=== PATIENT | male | born 1945 | race Caucasian/White ===

== ENCOUNTER 2017-09-02 12:03 | Inpatient (IN) | END 2017-09-03 11:12 | disposition home or self-care (01) | DRG 483 ==

== ENCOUNTER 2017-09-30 08:29 | Inpatient (IN) | END 2017-10-01 10:44 | disposition home or self-care (01) | DRG 483 ==

== ENCOUNTER 2017-11-02 12:41 | Inpatient (IN) | END 2017-11-05 15:05 | disposition home health service (06) | DRG 560 ==

== ENCOUNTER 2017-12-11 08:27 | Emergency (ER) | END 2017-12-11 14:35 | disposition home or self-care (01) ==

== ENCOUNTER 2018-03-17 08:53 | Inpatient (IN) | END 2018-03-18 11:07 | disposition home or self-care (01) | DRG 483 ==

== ENCOUNTER 2018-04-01 08:30 | Emergency (ER) | END 2018-04-01 12:12 | disposition home or self-care (01) ==

== ENCOUNTER 2018-05-05 10:02 | Inpatient (IN) | payer OTHER, MEDICARE ==
[~2018-05-05] VITALS: Ht 182.9 cm; Wt 88.2 kg
[2018-05-05] VITALS (26 sets, daily range): BP systolic 100–139; BP diastolic 53–68; PULSE 60–76; RESP 10–18
--- NOTE | 2018-05-05 05:48 | HPN ---
Date/Time of Note Date/Time of Note DATE: 05/05/18 TIME: 05:48 Interval H&P Admission Note Pt. seen H&P reviewed: No system changes ALLEN SRIVASTAVA MD May 05, 2018 05:48
--- NOTE | 2018-05-05 05:52 | OPR ---
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 Revision of right reverse total shoulder replacement with reverse total shoulder replacement 2. Application of PRP to intramedullary canal Surgeon see signature line Monotype Setter Braden Pulido DO Anesthesia Type: general Estimated Blood Loss: 100 - 150 ml's Transfusion none Specimen None Grafts/Implants See body of op note Complications none Pt Condition Post Procedure: stable Disposition: PACU Procedure Description THERAPIST PHYSICAL SURGEON: Braden Pulido DO was asked to be present for this case at my request. Assistance was necessary as a result of the highly technical nature of this operation. When performing an open total shoulder replacement, it is critical to have a trained reading assistant who is an expert in handling the extremity and assisting the surgeon in tasks such as manipulation of the arm, protection of the neurovascular structures and positioning the implants. This assistance cannot be performed by a behavioral technician, as it is considered an integral part of the procedure and Dr. Pulido should be compensated for his time. PROCEDURE IN DETAIL: Following the administration of general anesthesia supplemented with a peripheral nerve block for postoperative pain control, the patient was examined under anesthesia. Examination revealed that the humeral component was anterior and superiorly dislocated. Passively, it was not reducible. Prior to sterile prep and drape the forearm was then prepped and 60 cc of blood were pulled from the vein. The blood was then given to the customer retention representative to create a PRP infusion. The patient was then placed in the beach chair position. Sterile prep and drape was then undertaken. The prior deltopectoral incision was then carried through the interval exposing the conjoined tendon and retracting it medially. The humeral component was then subluxed and brought out. There was significant synovial reactive tissue and this was debrided. The humeral component was then removed relatively atraumatically preserving the humeral shaft intact. The proximal cement mantle was removed enough to insert the new device. Attention then directed to the glenoid where the glenoid component was evaluated no significant abnormalities were noted other than some metal wear. The glenoid sphere was then removed and replaced with a 42 mm eccentric component, which is ultimately placed anteriorly. This was a temporary spacer for evaluation later. The shaft was then prepared for a humeral component, which was a Biomet mini component. Ultimately, a size 4 component with a 10 mm deep liner was then applied. This appeared to have the best position. Prior to insertion of the new device, a portion of the posterior bone was noted to be very prominent. This was thought to be perhaps a reason for the recurrent dislocation episodes. The bone was then removed back to the base and no further impingement was noted with abduction and external rotation. The canal was then irrigated and the PRP solution was then applied. Cement was then used to fix the size for many Biomet component in 30 degrees of retroversion. The device was taken through a full range of motion with no evident instability. The joint was then thoroughly irrigated, the deep tissues were approximated using #1 suture followed by closure of the deep layer using 2-0 Monocryl. The skin was closed using 4-0 Monocryl suture, and a Prenio dressing. An Ultrasling was then applied. The patient was awakened and transported to the recovery room in stable condition. Estimated blood loss for this procedure was 200 cc. Radiographs will be obtained in the recovery room. ALLEN SRIVASTAVA MD May 05, 2018 05:52
[~2018-05-05 10:02] MED LIST: ASPI81TA52 PO; BUPIVACAINE 0.5% (SDV) 30 ML, morphine SULFATE (PF) 8 MG, EPINEPHrine 0.3 MG, KETOROLAC... IRR SCH; CEFAZOLIN 2 GM/50 ML (PMX) 50 ML IVPB ONE; CEPH-443 PO; DEXAMETHASONE 1 MG TAB PO ONE; GABAPENTIN 300 MG CAP PO ONE; GLIM2TAB PO; HYDR-3980 PO; METF100010 PO; SITA100T11 PO; SOD CHLORIDE 0.9% 100 ML, TRANEXAMIC ACID 3,000 MG IRR ONE; SUGAMMADEX SODIUM 200 MG/2 ML VIAL IV ONE; SULF1TAB31 PO; TRANEXAMIC ACID 1,000 MG in DEXTROSE 5% 100 ML IVPB ONE; TRHC5025 PO
[2018-05-05] MEDS ORDERED: PROPOFOL 20 ML ONE (10:26)
[2018-05-05] MEDS ORDERED: CEFAZOLIN 1 GM INJ ONE (10:26)
[2018-05-05] MEDS ORDERED: ROCURONIUM 50 MG INJ ONE (10:26)
[2018-05-05] MEDS ORDERED: GLYCOPYRROLATE 0.4 MG INJ ONE (10:26)
[2018-05-05] MEDS ORDERED: NEOSTIGMINE 3 MG/3 ML SYRINGE ONE (10:26)
[2018-05-05] MEDS ORDERED: FENTAnyl 50 MCG/ML VIAL ONE (10:27)
[2018-05-05] MEDS ORDERED: MIDAZOLAM 1 MG/ML 2 ML INJ ONE (10:27)
[2018-05-05] MEDS ORDERED: ROPIVACAINE 0.5 % 30 ML VIAL ONE (10:27)
[2018-05-05] MEDS ORDERED: ONDANSETRON 4 MG INJ ONE (10:27)
[2018-05-05] MEDS ORDERED: GABA100C14 PO (10:34)
[2018-05-05] MEDS ORDERED: LINA5TAB PO (10:35)
--- NOTE | 2018-05-05 11:42 | PREAC ---
Date/Time of Note Date/Time of Note DATE: 05/05/18 TIME: 11:40 Anesthesia Eval and Record Evaluation Time Pre-Procedure Interview DATE: 05/05/18 TIME: 11:40 Age 72 Sex male NPO: 8 hrs Preoperative diagnosis RIGHT SHOULDER OA Planned procedure REVISION REVERSE RIGHT TOTAL SHOULDER ARTHROPLASTY Past Medical History Past Medical History: Includes Endo: Diabetes (BS: 174) Surgery & Anesthesia Issues No known issue Meds Anticoagulation: No Beta Narda within 24 hr: No Reason Beta Narda not given: Pt. not on B-Narda Reported Medications Linagliptin (TRADJENTA) 5 Mg Tablet, 5 MG PO DAILY, TAB 05/05/18 Gabapentin* (Gabapentin*) 100 Mg Capsule, 100 MG PO BID, #90 CAP 05/05/18 Triamterene-HCTZ* (Triamterene-HCTZ*) 50 - 25 Mg Cap, 0.5 CAP PO DAILY, CAP 03/17/18 Metformin Hcl* (Metformin Hcl*) 1,000 Mg Tablet, 1000 MG PO WITH BREAKFAST DINNE, #60 TAB 03/17/18 Sitagliptin* (Januvia*) 100 Mg Tablet, 100 MG PO DAILY, #30 TAB 03/17/18 Glimepiride* (Glimepiride*) 2 Mg Tablet, 2 MG PO WITH BREAKFAST, TAB 09/02/17 Aspirin (Low Dose Aspirin) 81 Mg Tablet.dr, 81 MG PO DAILY, #30 TAB 09/02/17 Discontinued Scripts Hydrocodone/Acetaminophen ([place] 10-325 Tablet) 1 Each Tablet, 1 TAB PO Q6H PRN for PAIN, #7 TAB Prov:LEKKOS,APOSTOLOS A. DO 04/01/18 Sulfamethoxazole/Trimethoprim* (Bactrim Ds* Tablet) 1 Each Tablet, 1 TAB PO BID for 7 Days, TAB Prov:LEKKOS,APOSTOLOS A. DO 04/01/18 Cephalexin* (Keflex*) 500 Mg Capsule, 500 MG PO QID for 7 Days, CAP Prov:LEKKOS,APOSTOLOS A. DO 04/01/18 Current Medications Bupivacaine HCl/ Morphine Sulfate/ Epinephrine/ Ketorolac Tromethamine/ Clonidine/Sodium Chloride/ Vancomycin HCl INTRA-OP IRR ; Start 05/05/18 at 06:30 Meds reviewed: Yes Allergies Coded Allergies: latex (Unverified Allergy, Unknown, UNKNOWN, 05/05/18) LATEX ALLERGY (UNKNOWN REACTION) PER JONATAN AT MD OFFICE. 09/01/17 1147 Allergies Reviewed: Yes Labs/Studies Labs Reviewed: Reviewed by anesthesiologist Result Diagram: 05/05/18 1045 Laboratory Tests 05/05/18 10:45 test: N/A Studies: ECG (NL), CXR (NAPD) Pre-procedure Exam Last vitals Vital Signs Date Temp Pulse Resp B/P (MAP) Pulse Ox O2 O2 Flow FiO2 Time Delivery Rate 05/05/18 96.9 76 16 135/66 95 Room Air 11:03 (89) Airway: Adequate mouth opening, Adequate thyromental dist Mallampati: Mallampati II Teeth: Normal Lung: Normal Heart: Normal ASA Physical Status ASA physical status: 2 Emergency: None Planned Anesthetic General/MAC: ETT Nerve block: Brachial plexus (right) Planned Pain Management Single shot nerve block, Parenteral pain med, Local by surgeon Pre-operative Attestations Prior to commencing anesthesia and surgery, the patient was re-evaluated, there was verification of: *The patient's identity *The results of appropriate recent lab work and preoperative vital signs *The above evaluation not changing prior to induction *Anesthetic plan, risk benefits, alternative and complications discussed with patient/family; questions answered; patient/family understands, accepts and wishes to proceed. Inocente Rainey M.D. May 05, 2018 11:42
[2018-05-05] MEDS ORDERED: POLYMYXIN/BACITRACIN 1L IRRIG ONE (11:45)
[2018-05-05] MEDS ORDERED: CA CHLORIDE (GM) 10% 10 ML INJ ONE (11:45)
[2018-05-05] MEDS ORDERED: THROMBIN 5000 UNIT VIAL ONE (11:45)
[2018-05-05] MEDS ORDERED: BUPIVACAINE 0.5%/EPI (SDV) 30 ML INJ ONE (11:45)
[2018-05-05] MEDS ORDERED: OXYCODONE/ACETAMINOPHEN (5/325) TAB PO PRN ×2 (12:00)
[2018-05-05] MEDS ORDERED: ALBUTEROL 0.083% (NEB) 2.5 MG/3 ML AMP HHN PRN (12:00)
[2018-05-05] MEDS ORDERED: DIPHENHYDRAMINE 50 MG INJ IV PRN ×2 (12:00→14:00)
[2018-05-05] MEDS ORDERED: ONDANSETRON 4 MG INJ IV PRN ×2 (12:00→14:00)
[2018-05-05] MEDS ORDERED: TRIMETHOBENZAMIDE 100 MG/ML VIAL IM PRN (12:00)
[2018-05-05] MEDS ORDERED: FENTAnyl 50 MCG/ML VIAL IV PRN ×3 (12:00)
[2018-05-05] MEDS ORDERED: hydrALAzine 20 MG INJ IV PRN ×2 (12:00→18:30)
[2018-05-05] MEDS ORDERED: EPHEDrine SULFATE 50 MG/5 ML SYG IV PRN (12:00)
[2018-05-05] MEDS ORDERED: IPRATROPIUM (NEB) 0.5 MG/2.5 ML AMP HHN PRN (12:00)
[2018-05-05] MEDS ORDERED: LABETALOL HCL 20MG INJ IV PRN (12:00)
[2018-05-05] MEDS ORDERED: MEPERIDINE 25 MG INJ IV PRN (12:00)
[2018-05-05] MEDS ORDERED: HYDROmorphONE 1 MG/5 ML IV SYRINGE IV PRN ×3 (12:00)
[2018-05-05] MEDS ORDERED: MIDAZOLAM 1 MG/ML 2 ML INJ IV PRN (12:00)
--- NOTE | 2018-05-05 12:48 | PREOPHP ---
DATE OF ADMISSION: 05/05/2018 ADMITTING DIAGNOSIS: Failed reverse right total shoulder replacement revision by Dr. Allen Srivastava. HISTORY OF PRESENT ILLNESS: The patient is a 72-year-old male with type 2 diabetes, hypert ension and multiple surgeries on his right shoulder most recently done in 03/2018. The patient melany nued to have decreased range of motion and had evidence of failed reverse total replacement with redu klaudia range of motion and minimal pain. The patient is being admitted for elective revision. REVIEW OF SYSTEMS: No fevers, chills or night sweats. No chest pain, no shortness of breath, no pal pitations, no orthopnea, no sore throat, no cough, no diarrhea, no constipation, no heartburn, swelli ng in the ankles, no dizziness, no headache. PAST MEDICAL HISTORY: Type 2 diabetes, erectile dysfunction, hypertension. PAST SURGICAL HISTORY: Status post multiple surgeries on the right shoulder, last one being done 09/2017, status post laparoscopic cholecystectomy, status post left shoulder rotator cuff arthroscopy and repair and status post arthroscopy on the right knee and surgery on the left ankle. FAMILY HISTORY: Noncontributory. ALLERGIES: LATEX. MEDICATIONS: 1. Januvia 100 mg daily. 2. Triamterene/hydrochlorothiazide 50/25 1/2 daily. 2. Levitra 20 mg p.r.n. 3. Aspirin but has been on hold. SOCIAL HISTORY: The patient is . No tobacco, no alcohol use. PHYSICAL EXAMINATION: VITAL SIGNS: Blood pressure 140/70, respirations 16, pulse of 85, temperature 97.6, weight of 194 po unds, oxygen saturation 92% on room air. GENERAL: Well-developed, well-nourished male in no acute distress. SKIN: Without rashes. HEENT: EOMI, PERRLA. Oropharynx is clear without exudate. NECK: No jugular venous distention, 2+ carotid upstroke without bruits. No thyromegaly. No lymphad enopathy. LUNGS: Clear to auscultation bilaterally. HEART: Regular rate and rhythm. No murmurs, gallops or rub noted. ABDOMEN: Mild obesity, normoactive bowel sounds. No hepatosplenomegaly, no hepatojugular reflux. EXTREMITIES: No cyanosis, clubbing or edema. NEUROLOGIC: Nonfocal. DIAGNOSTIC DATA: EKG shows normal sinus rhythm without acute change from prior. LABORATORY EXAMINATION: Remarkable for an elevated nonfasting blood sugar. ASSESSMENT AND PLAN: The patient is to get elective revision of the right shoulder reverse total rep lacement that failed. The patient may proceed with the surgery as scheduled. There are no contraind ications to surgery as scheduled. 1. Failed right total shoulder reverse replacement. The patient is to undergo elective repair and m ay proceed with surgery as scheduled. 2. Diabetes. We will hold the patient's diabetic medications for the surgery and we will do sliding scale insulin postoperatively and advance diet depending on how he is doing. 3. Hypertension. The patient was to hold his diuretic prior to the surgery and we will resume medic ations and give p.r.n. if his blood pressure is elevated postoperatively. Dictated By: JIGNA GILLESPIE MD SR/NTS Conf#: [id number] DID#: [id number] CC: ALLEN SRIVASTAVA MD;*End*
[2018-05-05] MEDS ORDERED: VANCOMYCIN 1 GM INJ ONE ×2 (12:50→12:51)
[2018-05-05] MEDS ORDERED: TRANEXAMIC ACID 1,000 MG in SOD CHLORIDE 0.9% 100 ML IVPB ONE ×4 (13:30)
--- NOTE | 2018-05-05 13:41 | PDOCDIS ---
Discharge Instructions DIAGNOSIS Discharge Diagnosis Failed reverse total shoulder CONDITION [id number] Patient Condition: [id number] Good HOME CARE INSTRUCTIONS: [id number] Diet Instructions: [id number] Regular ACTIVITY: Myufi2Ee Activity Restrictions: Wgyni0y Slowly Increase Activity Quhtr8Go Bathing Restrictions: Ksvus2t Shower FOLLOW UP/APPOINTMENTS Follow-up Plan 2 weeks SCHOOL/WORK RELEASE May return to School/Work with: With Restrictions School/Work Release Comment: 5 pound tabletop usage for 6 weeks ALLEN SRIVASTAVA MD May 05, 2018 13:41
[2018-05-05] MEDS ORDERED: ZOLPIDEM 5 MG TAB PO PRN (14:00)
[2018-05-05] MEDS ORDERED: MAGNESIUM HYDROXIDE 30ML CUP PO PRN (14:00)
[2018-05-05] MEDS ORDERED: oxyCODONE 5 MG TAB PO PRN ×3 (14:00)
[2018-05-05] MEDS ORDERED: TRANEXAMIC ACID 1,000 MG in SOD CHLORIDE 0.9% 100 ML IVPB SCH (14:00)
[2018-05-05] MEDS ORDERED: NACL 0.9% 3 ML SYG IV SCH (14:00)
[2018-05-05] MEDS ORDERED: LOPERAMIDE 2 MG CAP PO PRN (14:00)
[2018-05-05] MEDS ORDERED: HYDROmorphONE 1 MG/ML SYG IV PRN (14:00)
[2018-05-05] MEDS ORDERED: KETOROLAC 15 MG INJ IV PRN (14:00)
[2018-05-05] MEDS ORDERED: CEFAZOLIN 1 GM/50 ML (PMX) 50 ML IVPB ONE (14:14)
[2018-05-05] MEDS: CEFAZOLIN 1 GM/50 ML (PMX) 50 ML IVPB SCH ×2 (14:58→22:06)
[2018-05-05] MEDS: ACCU-CHEK XX SCH ×6 (17:25→21:00)
[2018-05-05] MEDS: metFORMIN 500 MG TAB PO SCH (18:08)
[2018-05-05] MEDS: DEXAMETHASONE 2 MG TAB PO SCH (18:08)
[2018-05-05] MEDS: ACETAMINOPHEN 500 MG TAB PO SCH (18:08)
[2018-05-05] MEDS ORDERED: DEXTROSE 50% 50 ML SYRINGE IV PRN ×2 (18:30)
[2018-05-05] MEDS ORDERED: GLUCAGON 1 MG INJ IM PRN (18:30)
[2018-05-05] MEDS ORDERED: GLUCOSE GEL 15 GRAM TUBE PO PRN ×2 (18:30)
[2018-05-05] MEDS ORDERED: GLUCOSE GEL 15 GRAM TUBE BUCCAL PRN (18:30)
--- NOTE | 2018-05-05 19:46 | PN ---
DATE: 05/05/2018 SUBJECTIVE: The patient with no pain, but cannot move or feel his right arm since surgery. Otherwis e, feels fine. OBJECTIVE: VITAL SIGNS: Temperature 97.4, pulse 72 and regular, respirations 16, blood pressure 100/57, oxygen saturation 94% on 2-liter nasal cannula oxygen. GENERAL: Well-developed, well-nourished male in no acute distress, sitting up in bed. LUNGS: Clear to auscultation bilaterally. HEART: Regular rate and rhythm. ABDOMEN: Soft, nontender. SKIN: Wound clean, dry and intact. No drainage. NEUROLOGIC: The patient is unable to move the right upper extremity and has no fine touch, pinprick or temperature sensation until the medial axillary area of the arm. Neurological is otherwise nonfoc al. IMPRESSION AND PLAN: 1. Status post revision of right reverse total shoulder replacement. The patient is doing well post operatively without problems. We will continue with analgesia, antibiotics and wound control. 2. Diabetes. The patient is to receive metformin, Tradjenta and glimepiride with a sliding scale in sulin with NovoLog with mild algorithm to keep blood sugars less than 150. 3. Hypertension. We will continue the patient's blood pressure medication and give p.r.n. hydralazi ne. Dictated By: JIGNA GILLESPIE MD SR/NTS Conf#: [id number] DID#: [id number] CC: ALLEN SRIVASTAVA MD;*EndCC*
[2018-05-05] MEDS: SENNA/DOCUSATE NA (8.6MG/50MG) TAB PO SCH (21:00)
[2018-05-05] MEDS ORDERED: GABAPENTIN 300 MG CAP PO SCH (21:00)
[2018-05-05] MEDS: GABAPENTIN 100 MG CAP PO SCH (22:06)
[2018-05-05] MEDS: INSULIN ASPART [NOVOLOG] 3 ML PEN SC SCH (22:14)
--- NOTE | 2018-05-06 05:51 | DS ---
Date/Time of Note Date/Time of Note DATE: 05/06/18 TIME: 05:51 Discharge Summary Admission/Discharge Info Admit Date/Time May 05, 2018 at 10:02 Discharge Date/Time 05/06/2018 Discharge Diagnosis Failed reverse total shoulder Patient Condition: Good Hospital Course Admitted and underwent uncomplicated procedure. Postop day #1 he is stable, af ebrile discharged to be followed up in the office in 10 days. He is to use the arm for very simple activities of daily living only. No lifting. Home Meds Reported Medications Linagliptin (TRADJENTA) 5 Mg Tablet, 5 MG PO DAILY, TAB 05/05/18 Gabapentin* (Gabapentin*) 100 Mg Capsule, 100 MG PO BID, #90 CAP 05/05/18 Triamterene-HCTZ* (Triamterene-HCTZ*) 50 - 25 Mg Cap, 0.5 CAP PO DAILY, CAP 03/17/18 Metformin Hcl* (Metformin Hcl*) 1,000 Mg Tablet, 1000 MG PO WITH BREAKFAST DINNE, #60 TAB 03/17/18 Sitagliptin* (Januvia*) 100 Mg Tablet, 100 MG PO DAILY, #30 TAB 03/17/18 Glimepiride* (Glimepiride*) 2 Mg Tablet, 2 MG PO WITH BREAKFAST, TAB 09/02/17 Aspirin (Low Dose Aspirin) 81 Mg Tablet.dr, 81 MG PO DAILY, #30 TAB 09/02/17 Discontinued Scripts Hydrocodone/Acetaminophen ([place] 10-325 Tablet) 1 Each Tablet, 1 TAB PO Q6H PRN for PAIN, #7 TAB Prov:LEKKOS,APOSTOLOS A. DO 04/01/18 Sulfamethoxazole/Trimethoprim* (Bactrim Ds* Tablet) 1 Each Tablet, 1 TAB PO BID for 7 Days, TAB Prov:LEKKOS,APOSTOLOS A. DO 04/01/18 Cephalexin* (Keflex*) 500 Mg Capsule, 500 MG PO QID for 7 Days, CAP Prov:LEKKOS,APOSTOLOS A. DO 04/01/18 Follow-up Plan 2 weeks Primary Care Provider Ken Limon Pending Labs Laboratory Tests Test 05/05/18 10:45 05/05/18 10:53 05/05/18 14:27 05/05/18 18:02 White Blood 4.6 Count 10^3/ul (4.8-10 .8) Red Blood 4.11 Count 10^6/ul (4.70-6 .10) Hemoglobin 12.7 g/dl (14.0-18.0 ) Hematocrit 38.8 % (42.0-52.0) Mean 94.4 Corpuscular fl (82.0-101.0) Volume Mean 30.9 Corpuscular pg (29.0-33.0) Hemoglobin Mean 32.7 Corpuscular g/dl (32.0-37.0 Hemoglobin Conc ) ent Red Cell 13.0 Distribution % (11.5-14.5) Width Platelet Count 188 10^3/UL (140-41 5) Mean Platelet 10.2 Volume fl (7.4-10.4) Immature 0.400 Granulocytes % % (0.001-0.429) Neutrophils % 65.4 % (39.0-77.0) Lymphocytes % 21.0 % (15.0-51.0) Monocytes % 9.1 % (0.0-11.0) Eosinophils % 3.0 % (0.0-7.0) Basophils % 1.1 % (0.0-2.0) Nucleated Red 0.0 Blood Cells % /100WBC (0.0-0. 0) Immature 0.020 Granulocytes # 10^3/ul (0.0-0. 031) Neutrophils # 3.0 10^3/ul (1.6-7. 5) Lymphocytes # 1.0 10^3/ul (0.8-2. 9) Monocytes # 0.4 10^3/ul (0.3-0. 9) Eosinophils # 0.1 10^3/ul (0.0-0. 5) Basophils # 0.1 10^3/ul (0.0-0. 1) Nucleated Red 0.0 Blood Cells # 10^3/ul (0.0-0. 0) Prothrombin 12.5 Time Sec (11.9-14.9) Prothrombin 1.0 Time Ratio INR 0.92 International Normalized Rati o Activated 36.3 Partial Thrombo Sec (23.0-35.0) plast Time Sodium Level 139 mmol/L (135-144 ) Potassium 4.2 Level mmol/L (3.5-5.1 ) Chloride Level 98 mmol/L (97-110) Carbon Dioxide 30 Level mmol/L (21-31) Anion Gap 11 (5-13) Blood Urea 18 mg/dl (7-20) Nitrogen Creatinine 1.19 mg/dl (0.61-1.2 4) Est Glomerular mL/min (>60) Filtrat Rate mL/min Glucose Level 166 mg/dl (70-220) Calcium Level 10.1 mg/dl (8.4-10.2 ) Bedside 174 164 217 Glucose mg/dL (70-220) mg/dL (70-220) mg/dL (70-220) Test 05/05/18 22:08 05/06/18 03:00 Bedside 341 311 Glucose mg/dL (70-220) mg/dL (70-220) ALLEN SRIVASTAVA MD May 06, 2018 05:51
--- NOTE | 2018-05-06 05:51 | PN ---
Date/Time of Note Date/Time of Note DATE: 05/06/18 TIME: 05:49 Subjective Awake and alert this morning. Minimal pain. Objective Vitals Vital Signs Date Temp Pulse Resp B/P (MAP) Pulse Ox O2 O2 Flow FiO2 Time Delivery Rate 05/05/18 97.8 71 18 112/53 95 23:44 (72) 05/05/18 Nasal 17:00 Cannula 05/05/18 2.0 16:20 Intake and Output 05/05/18 05/05/18 05/06/18 1515:00 23:00 07:00 IntakeIntake Total 2000 ml 840 ml 50 ml OutputOutput Total 100 ml 400 ml BalanceBalance 1900 ml 440 ml 50 ml Wound is clean and dry. He is neurologically intact. There is minimal swelling. There are no signs of DVT. Results Result Diagram: 05/05/18 1045 05/05/18 1045 Medications Medications Current Medications Bupivacaine HCl/ Morphine Sulfate/ Epinephrine/ Ketorolac Tromethamine/ Clonidine/Sodium Chloride/ Vancomycin HCl INTRA-OP IRR ; Start 05/05/18 at 06:30 Influenza Virus Vaccine Quadrival (Fluzone) 0.5 ml ONCE ONCE IM* ; Start 05/06/18 at 11:00; Stop 05/06/18 at 11:01 Gabapentin (Neurontin) 100 mg BID PO Last administered on 05/05/18at 22:06; Admin Dose 100 MG; Start 05/05/18 at 21:00 Glimepiride (Amaryl) 2 mg WITH BREAKFAST PO ; Start 05/06/18 at 07:50 Linagliptin (Tradjenta) 5 mg DAILY PO ; Start 05/06/18 at 09:00 Metformin HCl (Glucophage) 1,000 mg WITH BREAKFAST DINNE PO Last administered on 05/05/18at 18:08; Admin Dose 1,000 MG; Start 05/05/18 at 17:55 Linagliptin (Tradjenta) 5 mg DAILY PO ; Start 05/06/18 at 09:00 Diagnostic Test (Pha) (Accu-Chek) 1 ea AC MEALS AND BEDTIME XX Last administered on 05/05/18at 18:03; Admin Dose 1 EA; Start 05/05/18 at 17:25 Diagnostic Test (Pha) (Accu-Chek) 1 ea AC MEALS AND BEDTIME XX ; Start 05/05/18 at 17:25 Diagnostic Test (Pha) (Accu-Chek) 1 ea AC MEALS AND BEDTIME XX Last administered on 05/05/18at 17:25; Admin Dose 1 EA; Start 05/05/18 at 17:25 Cefazolin Sodium 50 ml @ 100 mls/hr Q8H IVPB Last administered on 05/05/18at 22:06; Admin Dose 100 MLS/HR; Start 05/05/18 at 14:00; Stop 05/06/18 at 06:29 Senna/Docusate Sodium (Senokot-S) 1 tab BID PO ; Start 05/05/18 at 21:00 Simethicone (Mylicon) 80 mg TID PRN PO .GAS; Start 05/05/18 at 14:00 Magnesium Hydroxide (Milk Of Mag) 30 ml BID PRN PO .CONSTIPATION; Start 05/05/18 at 14:00 Loperamide HCl (Imodium Cap) 2 mg Q6H PRN PO .DIARRHEA; Start 05/05/18 at 14:00 Dexamethasone (Decadron) 2 mg Q6 PO Last administered on 05/05/18at 18:08; Admin Dose 2 MG; Start 05/05/18 at 18:00; Stop 05/06/18 at 12:01 Gabapentin (Neurontin) 300 mg HS PO ; Start 05/05/18 at 21:00 Acetaminophen (Tylenol Tab) 500 mg Q6 PO Last administered on 05/05/18at 18:08; Admin Dose 500 MG; Start 05/05/18 at 18:00 Oxycodone HCl (Roxicodone) 15 mg Q4H PRN PO .PAIN; Start 05/05/18 at 14:00 Oxycodone HCl (Roxicodone) 10 mg Q4H PRN PO .PAIN; Start 05/05/18 at 14:00 Oxycodone HCl (Roxicodone) 5 mg Q4H PRN PO .PAIN; Start 05/05/18 at 14:00 Hydromorphone HCl (Dilaudid) 1 mg Q4H PRN IV .BREAKTHROUGH PAIN; Start 05/05/18 at 14:00 Ketorolac Tromethamine (Toradol) 15 mg Q6H PRN IV .PAIN; Start 05/05/18 at 14:00 Ondansetron HCl (Zofran Inj) 4 mg Q6H PRN IV NAUSEA/VOMITING; Start 05/05/18 at 14:00 Diphenhydramine HCl (Benadryl) 25 mg Q6H PRN IV .PRURITUS; Start 05/05/18 at 14:00 Zolpidem Tartrate (Ambien) 10 mg HS PRN PO .INSOMNIA; Start 05/05/18 at 14:00 IV Flush (NS 3 ml) 3 ml per protocol IV ; Start 05/05/18 at 14:00 Tranexamic Acid 1000 mg/Sodium Chloride 110 ml @ 220 mls/hr POST OP IVPB ; Start 05/05/18 at 14:00 Insulin Aspart (Novolog Insulin Pen) NOVOLOG *MILD* ALGORITHM WITH MEALS BEDTIME SC Last administered on 05/05/18at 22:14; Admin Dose 4 UNIT; Start 05/05/18 at 21:00 Miscellaneous Information 1 ea NOTE XX ; Start 05/05/18 at 18:30 Glucose (Glutose) 15 gm Q15M PRN PO DECREASED GLUCOSE; Start 05/05/18 at 18:30 Glucose (Glutose) 22.5 gm Q15M PRN PO DECREASED GLUCOSE; Start 05/05/18 at 18:30 Dextrose (D50w Syringe) 25 ml Q15M PRN IV DECREASED GLUCOSE; Start 05/05/18 at 18:30 Dextrose (D50w Syringe) 50 ml Q15M PRN IV DECREASED GLUCOSE; Start 05/05/18 at 18:30 Glucagon (Glucagen) 1 mg Q15M PRN IM DECREASED GLUCOSE; Start 05/05/18 at 18:30 Glucose (Glutose) 15 gm Q15M PRN BUCCAL DECREASED GLUCOSE; Start 05/05/18 at 18:30 Hydralazine HCl (Apresoline) 5 mg Q6H PRN IV SBP>180 OR DBP >100; Start 05/05/18 at 18:30 Triamterene/HCTZ (Maxzide-25) 1 tab DAILY PO ; Start 05/06/18 at 09:00 VTE Prophylaxis Risk score (from Ns)>0 risk: 2 SCD applied (from Ns): Yes Lines/Catheters IV Catheter Type: Saline Lock Case in Place: No Assessment/Plan Assessment/Plan Assessment: Status post revision of reverse total shoulder replacement Plan: He will be discharged today. He will follow-up in the office in 10 days. He is to use the arm for very simple ADLs only. He will not have any therapy. ALLEN SRIVASTAVA MD May 06, 2018 05:51
--- NOTE | 2018-05-06 06:04 | NUR ---
EOSS PATIENT RESTED OFF AND ON. NO C/O PAIN. DRESSING CDI. SLING IN PLACE. ABLE TO WIGGLE FINGERS NOW. PULSES INTACT. NO DRAINAGE NOTED. ICE PACKS PLACED OFF AND ON. NO S/S OF DISTRESS NOTED. VOIDING WELL IN TOILET. TOLERATING DIET. ANTIBIOTICS INFUSING WELL. NO REACTION NOTED. SIDE EFFECTS REVIEWED. CALL LIGHT IN EASY REACH. WILL CONTINUE TO MONITOR.
[2018-05-06] MEDS: ACETAMINOPHEN 500 MG TAB PO SCH ×2 (06:31)
[2018-05-06] MEDS: DEXAMETHASONE 2 MG TAB PO SCH ×2 (06:31)
[2018-05-06] MEDS: CEFAZOLIN 1 GM/50 ML (PMX) 50 ML IVPB SCH (06:31)
[2018-05-06] MEDS: ACCU-CHEK XX SCH ×3 (07:20)
[2018-05-06 07:25] VITALS: BP 108/58; PULSE 68; RESP 19
[2018-05-06] MEDS ORDERED: GLIMEPIRIDE 2 MG TAB PO SCH (07:50)
[2018-05-06] MEDS: INSULIN ASPART [NOVOLOG] 3 ML PEN SC SCH (07:50)
--- NOTE | 2018-05-06 08:56 | PN ---
DATE: 05/06/2018 SUBJECTIVE: The patient is feeling well, has movement and sensation in his right upper extremity sin ce around 1:30 in the morning. The patient denies pain. OBJECTIVE: VITAL SIGNS: Temperature 98.2, pulse 68, respirations 19, blood pressure 108/58, oxygen saturation 9 6% on room air. GENERAL: Well-developed, well-nourished male in no acute distress, sitting up in bed. LUNGS: Clear to auscultation bilaterally. HEART: Regular rate and rhythm. ABDOMEN: Soft, nontender. EXTREMITIES: Right upper extremity wound clean, dry and intact. The patient has normal sensation an d strength in the right upper extremity. There is mild edema in hand and forearm. LABORATORY DATA: White blood cell count 4.6, hemoglobin 12.7, hematocrit 38.8, blood sugar at 8:30 t his morning 187. ASSESSMENT AND PLAN: 1. Status post revision right reverse total shoulder replacement. The patient is doing well postope ratively and is stable for discharge to home. The patient will be given pain medications, antibiotic s, and follow up with Dr. Armas, per his recommendations. 2. Diabetes, remains labile. The patient received Decadron postoperatively and is on sliding scale as well as oral medications. The patient to be started on glimepiride today and will discharge home on metformin b.i.d. 3. Tradjenta and glimepiride. The patient has a followup appointment with me. 4. Hypertension, stable. Continue with medications. Dictated By: JIGNA GILLESPIE MD, SR/LAURA Conf#: [id number] DID#: [id number]
[2018-05-06] MEDS ORDERED: LINAGLIPTIN 5 MG TABLET PO SCH ×2 (09:00)
[2018-05-06] MEDS ORDERED: TRIAMTERENE/HCTZ (37.5-25) CAP PO SCH (09:00)
[2018-05-06] MEDS ORDERED: TRIAMTERENE/HCTZ (50-25) CAP PO SCH (09:00)
[2018-05-06] MEDS ORDERED: TRIAMTERENE/HCTZ (37.5/25) TAB PO SCH (09:00)
--- NOTE | 2018-05-06 09:00 | NUR ---
Annita was duplicate
[2018-05-06] MEDS: SENNA/DOCUSATE NA (8.6MG/50MG) TAB PO SCH (09:11)
[2018-05-06] MEDS: GABAPENTIN 100 MG CAP PO SCH (09:12)
[2018-05-06] MEDS: metFORMIN 500 MG TAB PO SCH (09:13)
--- NOTE | 2018-05-06 09:20 | NUR ---
Amaryl 2 mg given, wasn't scan
== END 2018-05-06 10:23 | disposition home or self-care (01) | DRG 483 ==
LOC: REC 10:02 → EDSTATUS 12:00 → MS1 15:30
PROVIDERS: ADMIT Orthopaedic Surgery; ATTEND Orthopaedic Surgery
PROC: 0RPJ0JZ Removal of Synthetic Substitute from Right Shoulder Joint, Open Approach (ICD-10-PCS; 2018-05-05)
PROC: 0RRJ00Z Replacement of Right Shoulder Joint with Reverse Ball and Socket Synthetic Substitute, Open Approach (ICD-10-PCS; principal; 2018-05-05 12:00)
DX: T84.89XA Other specified complication of internal orthopedic prosthetic devices, implants and grafts, initial encounter (principal); Y79.2 Prosthetic and other implants, materials and accessory orthopedic devices associated with adverse incidents; E11.9 Type 2 diabetes mellitus without complications; I10 Essential (primary) hypertension
CPT/HCPCS: 80048; 82962; 85025; 85610; 85730; 86999; 88300; 90686; C1713; J0171; J0690; J0735; J1815; J1885; J2250; J2274; J2405; J2710; J2795; J3010; J3370